=== PATIENT | female | born 1930 | race Caucasian/White ===

== ENCOUNTER 2018-12-27 13:10 | Emergency (ER) | payer OTHER, MEDICARE ==
[~2018-12-27] VITALS: Ht 157.5 cm; Wt 59.4 kg
[~2018-12-27 13:10] MED LIST: HYDR12.58 PO
[2018-12-27 13:16] VITALS: BP 162/69
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
== END 2018-12-27 15:06 | disposition home or self-care (01) ==
LOC: ER 13:10
DX: S09.8XXA Other specified injuries of head, initial encounter (principal); Z95.0 Presence of cardiac pacemaker; Z88.5 Allergy status to narcotic agent; V49.49XA Driver injured in collision with other motor vehicles in traffic accident, initial encounter; Y92.488 Other paved roadways as the place of occurrence of the external cause; Y93.89 Activity, other specified; Y99.8 Other external cause status
CPT/HCPCS: 70450; 99284-25